=== PATIENT | female | born 1990 | race American Indian/Alaskan Native ===

== ENCOUNTER 2019-01-16 16:27 | Emergency (ER) | payer SELFPAY ==
[2019-01-16] MEDS ORDERED: AMOXICILLIN/K CLAV 875/125MG TAB PO ONE (19:20)
[2019-01-16] MEDS ORDERED: IBUPROFEN 800 MG TAB PO ONE (19:20)
--- NOTE | 2019-01-16 19:51 | Emergency Department Report ---
ED General Adult HPI - General Chief complaint: Nausea/Vomiting/Diarrhea Stated complaint: VOMIT/MISS PERIOD Time Seen by Provider: 01/16/19 19:07 Source: patient Mode of arrival: Ambulatory Limitations: No Limitations - History of Present Illness Initial comments: pt is a 28 y/o aaf who presents for complaint of n/v qam, cough head congestion, sore throat. concerned for . hx or recurring URI, 2 children at home who are sick with strep throat and uri. symptoms are exacerbated by nothing, relieved by nothing. pt is tolerating po intake at this time. There is no fever. pt is tolerating po intake at this time. Onset/Timin -: week(s) Location: head Severity scale (0 -10): 3 Consistency: intermittent Improves with: none Worsens with: none Associated Symptoms: cough, nausea/vomiting, other (head congestion ) Treatments Prior to Arrival: none - Related Data Previous Rx's Medication Instructions Recorded Last Taken Type Acetaminophen [Acetaminophen TAB] 1,000 mg PO Q6HR PRN #30 tablet 01/16/19 Unknown Rx Amoxicillin/Potassium Clav 1 each PO BID 10 Days #20 tablet 01/16/19 Unknown Rx [Augmentin 875-125 Tablet] Allergies Allergy/AdvReac Type Severity Reaction Status Date / Time No Known Allergies Allergy Verified 01/16/19 16:31 ED Review of Systems ROS: Stated complaint: VOMIT/MISS PERIOD Other details as noted in HPI Constitutional: denies: chills, fever Eyes: denies: eye pain, eye discharge, vision change ENT: ear pain, throat pain Respiratory: cough. denies: shortness of breath, wheezing Cardiovascular: denies: chest pain, palpitations Endocrine: no symptoms reported Gastrointestinal: denies: abdominal pain, nausea, diarrhea Genitourinary: denies: urgency, dysuria, discharge Musculoskeletal: denies: back pain, joint swelling, arthralgia Skin: denies: rash, lesions Neurological: denies: headache, weakness, paresthesias Psychiatric: denies: anxiety, depression Hematological/Lymphatic: denies: easy bleeding, easy bruising ED Past Medical Hx - Past Medical History Previous Medical History?: No - Surgical History Past Surgical History?: No - Social History Smoking Status: Never Smoker Substance Use Type: None - Medications Home Medications: Home Medications Medication Instructions Recorded Confirmed Last Taken Type Acetaminophen [Acetaminophen TAB] 1,000 mg PO Q6HR PRN #30 tablet 01/16/19 Unknown Rx Amoxicillin/Potassium Clav 1 each PO BID 10 Days #20 tablet 01/16/19 Unknown Rx [Augmentin 875-125 Tablet] ED Physical Exam - General Limitations: No Limitations General appearance: alert, in no apparent distress - Head Head exam: Present: atraumatic, normocephalic, normal inspection - Eye Eye exam: Present: normal appearance, PERRL, EOMI Pupils: Present: normal accommodation - ENT ENT exam: Present: mucous membranes moist, TM's normal bilaterally, normal external ear exam - Expanded ENT Exam Expanded Ear exam: Present: normal external inspection Throat exam: Positive: tonsillar erythema, tonsillomegaly, tonsillar exudate, other (uvula midline no stridor no lesions ). Negative: R peritonsillar mass, L peritonsillar mass - Neck Neck exam: Present: normal inspection, full ROM, lymphadenopathy. Absent: tenderness, meningismus, thyromegaly - Respiratory Respiratory exam: Absent: wheezes, stridor, chest wall tenderness - Cardiovascular Cardiovascular Exam: Present: regular rate, normal rhythm, normal heart sounds. Absent: systolic murmur, diastolic murmur, rubs, gallop - GI/Abdominal GI/Abdominal exam: Present: soft, normal bowel sounds. Absent: distended, tenderness, guarding, rebound, rigid, bruit, hernia - Rectal Rectal exam: Present: deferred - Extremities Exam Extremities exam: Present: normal inspection, full ROM, normal capillary refill, calf tenderness. Absent: tenderness - Back Exam Back exam: Present: normal inspection, full ROM. Absent: tenderness, rash noted - Neurological Exam Neurological exam: Present: alert, oriented X3, CN II-XII intact, normal gait, reflexes normal - Psychiatric Psychiatric exam: Present: normal affect, normal mood - Skin Skin exam: Present: warm, dry, intact, normal color. Absent: rash ED Course Vital Signs 01/16/19 17:13 Temperature 98.4 F Pulse Rate 98 H Respiratory 16 Rate Blood Pressure 147/77 O2 Sat by Pulse 96 Oximetry ED Medical Decision Making - Medical Decision Making pt advises that she can no longer wait for hcg results plan: augmentin, ibuprofen, follow up with pcp. in 2-3 days. Critical care attestation.: If time is entered above; I have spent that time in minutes in the direct care of this critically ill patient, excluding procedure time. ED Disposition Clinical Impression: Pharyngitis Qualifiers: Pharyngitis/tonsillitis etiology: unspecified etiology Qualified Code(s): J02.9 - Acute pharyngitis, unspecified Disposition: TO HOME OR SELFCARE Is pt being admited?: No Does the pt Need Aspirin: No Condition: Stable Instructions: Pharyngitis (ED) Prescriptions: Acetaminophen [Acetaminophen TAB] 1,000 mg PO Q6HR PRN #30 tablet PRN Reason: pain Amoxicillin/Potassium Clav [Augmentin 875-125 Tablet] 1 each PO BID 10 Days #20 tablet Referrals: [facility] [Outside] - 3-5 Days Forms: Work/School Release Form(ED) Time of Disposition: 19:58
[2019-01-16 20:50] LABS: HCG Qualitative,Urine Positive (Negative)
[2019-01-16 21:07] VITALS: BP 126/63
== END 2019-01-16 20:24 | disposition home or self-care (01) ==
LOC: ED 16:27
DX: J02.9 Acute pharyngitis, unspecified (principal)
CPT/HCPCS: 81025

== ENCOUNTER 2019-02-26 16:39 | Emergency (ER) | payer MEDICAID ==
[2019-02-26] MEDS ORDERED: ASPIRIN 325 MG TAB ONE (17:33)
[2019-02-26] MEDS ORDERED: SODIUM CHLORIDE 0.9% 1000 ML 1,000 ML IV ONE ×2 (17:43→18:16)
--- NOTE | 2019-02-26 17:52 | Emergency Department Report ---
ED Female HPI - General Chief complaint: Vaginal Bleeding Stated complaint: VAGINAL BLEED (POSS MISCARRIAGE) Time Seen by Provider: 02/26/19 17:30 Source: patient, EMS Mode of arrival: Stretcher Limitations: No Limitations - History of Present Illness Initial comments: Patient is a 28-year-old female that presents emergency room with worsening abdominal cramps and vaginal bleeding. Patient states her symptoms been going on for 4 days but today the symptoms worsen. Patient states she is approximately 3 months and and has not had any care. Patient states she doesn't know her Rh status. Patient states her pain is a 10 out of 10. Patient states her pain is worse with movement better with rest. MD Complaint: vaginal bleeding, pelvic pain -: Sudden Location: suprapubic Radiation: non-radiating Severity: severe Severity scale (0 -10): 10 Quality: cramping, sharp Consistency: constant Improves with: other Are you Now?: Yes Associated Symptoms: vaginal bleeding, abdominal pain. denies: nausea/vomiting, fever/chills, headaches, loss of appetite, dysuria, hematuria, rash, seizure, shortness of breath, syncope, weakness - Related Data Sexually active: Yes : 3 Para: 2 A: 0 Previous Rx's Medication Instructions Recorded Last Taken Type Acetaminophen [Acetaminophen TAB] 1,000 mg PO Q6HR PRN #30 tablet 01/16/19 Unknown Rx Amoxicillin/Potassium Clav 1 each PO BID 10 Days #20 tablet 01/16/19 Unknown Rx [Augmentin 875-125 Tablet] HYDROcodone/APAP 7.5-325 [[place] 1 each PO Q6HR PRN #12 tablet 02/26/19 Unknown Rx 7.5/325] Iron Fum,Ps/Folic/Bcomp,C No.9 1 each PO BID #60 capsule 02/26/19 Unknown Rx [Integra Plus Capsule] Allergies Allergy/AdvReac Type Severity Reaction Status Date / Time No Known Allergies Allergy Verified 01/16/19 16:31 ED Review of Systems ROS: Stated complaint: VAGINAL BLEED (POSS MISCARRIAGE) Other details as noted in HPI Constitutional: denies: chills, fever Eyes: denies: eye pain, eye discharge, vision change ENT: denies: ear pain, throat pain Respiratory: denies: cough, shortness of breath, wheezing Cardiovascular: denies: chest pain, palpitations Endocrine: no symptoms reported Gastrointestinal: abdominal pain. denies: nausea, diarrhea Genitourinary: as per HPI, other. denies: urgency, dysuria, discharge Musculoskeletal: denies: back pain, joint swelling, arthralgia Skin: denies: rash, lesions Neurological: denies: headache, weakness, paresthesias Psychiatric: denies: anxiety, depression Hematological/Lymphatic: denies: easy bleeding, easy bruising ED Past Medical Hx - Past Medical History Previous Medical History?: Yes Additional medical history: anemia - Surgical History Past Surgical History?: No - Family History Family history: no significant - Social History Smoking Status: Never Smoker Substance Use Type: None - Medications Home Medications: Home Medications Medication Instructions Recorded Confirmed Last Taken Type Acetaminophen [Acetaminophen TAB] 1,000 mg PO Q6HR PRN #30 tablet 01/16/19 Unknown Rx Amoxicillin/Potassium Clav 1 each PO BID 10 Days #20 tablet 01/16/19 Unknown Rx [Augmentin 875-125 Tablet] HYDROcodone/APAP 7.5-325 [[place] 1 each PO Q6HR PRN #12 tablet 02/26/19 Unknown Rx 7.5/325] Iron Fum,Ps/Folic/Bcomp,C No.9 1 each PO BID #60 capsule 02/26/19 Unknown Rx [Integra Plus Capsule] ED Physical Exam - General Limitations: No Limitations General appearance: alert, in no apparent distress - Head Head exam: Present: atraumatic, normocephalic - Eye Eye exam: Present: normal appearance - ENT ENT exam: Present: mucous membranes moist - Neck Neck exam: Present: normal inspection - Respiratory Respiratory exam: Present: normal lung sounds bilaterally. Absent: respiratory distress - Cardiovascular Cardiovascular Exam: Present: regular rate, normal rhythm. Absent: systolic murmur, diastolic murmur, rubs, gallop - GI/Abdominal GI/Abdominal exam: Present: soft, tenderness (suprapubic ttp), normal bowel sounds - Extremities Exam Extremities exam: Present: normal inspection - Back Exam Back exam: Present: normal inspection - Neurological Exam Neurological exam: Present: alert, oriented X3 - Psychiatric Psychiatric exam: Present: normal affect, normal mood - Skin Skin exam: Present: warm, dry, intact, normal color. Absent: rash ED Course Vital Signs 02/26/19 02/26/19 02/26/19 17:26 17:30 17:39 Respiratory 78 H Rate Blood Pressure 74/34 71/30 O2 Sat by Pulse 100 100 Oximetry 02/26/19 02/26/19 02/26/19 17:46 18:00 18:15 Respiratory Rate Blood Pressure 81/32 117/60 115/56 O2 Sat by Pulse 100 100 Oximetry 02/26/19 02/26/19 02/26/19 18:30 18:45 19:01 Respiratory Rate Blood Pressure 136/79 144/75 145/59 O2 Sat by Pulse 100 100 95 Oximetry 02/26/19 02/26/19 02/26/19 19:15 19:30 19:45 Respiratory Rate Blood Pressure 139/72 159/80 133/77 O2 Sat by Pulse 59 L 100 100 Oximetry 02/26/19 02/26/19 02/26/19 20:00 20:15 20:30 Respiratory Rate Blood Pressure 147/78 135/68 132/75 O2 Sat by Pulse 99 100 100 Oximetry 02/26/19 02/26/19 02/26/19 20:45 21:01 21:15 Respiratory Rate Blood Pressure 139/73 123/74 116/61 O2 Sat by Pulse 100 100 100 Oximetry - Reevaluation(s) Reevaluation #1: Patient became hypotensive area patient will be given a bolus of fluids. 02/26/19 17:42 Reevaluation #2: Patient's blood pressure has improved. Patient will have her ultrasound done at bedside. 02/26/19 17:57 Reevaluation #3: Pressure is currently 117/60. Patient will be given pain medications and another bolus of fluids. 02/26/19 18:15 Reevaluation #4: Patient's blood pressure stable. Patient ambulatory in the ER without symptoms or difficulty. Patient does not have any dizziness or complaints with ambulating. Patient stable for discharge. Patient will be discharged home. Patient given follow-up instructions. Patient given discharge instructions. Patient voiced understanding of all instructions. I discussed all results with patient. I discussed plan of care with patient. Patient agrees with plan of care. 02/26/19 21:01 - Consultations Consultation #1: i discussed case with Dr. Estrada, [facility] [employer]. Dr. Estrada recommends discharging patient home to follow up with her office tomorrow at 3:15 in the afternoon. 02/26/19 20:15 ED Medical Decision Making - Lab Data Result diagrams: 02/26/19 17:39 02/26/19 17:39 - Radiology Data Radiology results: report reviewed PELVIC ULTRASOUND INDICATION: Early , vaginal bleeding, passage of clots TECHNIQUE: Transabdominal and endovaginal FINDINGS: Uterus measures 15.3 x 6.7 x 4.6 cm. Endometrial stripe is prominent at 18 mm. On the endovaginal study fluid is seen within the endometrial canal mild internal echoes which may relate to the reported vaginal bleeding but I do not see a defined definite gestational sac. Within the fluid no defined pole or yolk sac are seen and no cardiac activity was noted. Right ovary measures 2.9 cm in length and shows no abnormalities. Left ovary measures 3.1 cm in length and shows no abnormalities. Only a trace of free fluid is seen in the cul-de-sac. IMPRESSION: No definite intrauterine is identified. There is fluid in the endometrial canal but this is not clearly a gestational sac and I cannot confirm an intrauterine . Probably this is a spontaneous in progress though technically I cannot exclude the possibility of ectopic . Do not see strong evidence of that process however. Clinical correlation is suggested. - Medical Decision Making Patient is a 28-year-old female that presents [facility] with abdominal cramping and vaginal bleeding. Patient states she took a home a few months ago was positive. Patient did not have any follow-up for [employer] care for this . Patient had an ultrasound done in the ER and shows an empty uterus. Patient initially hypotensive given fluids and blood pressure improved. Patient monitored for several hours and patient ambulating in the ER multiple times without difficulty. I counseled to COMPLIANCE REVIEW OFFICER for this patient and they recommended discharge and follow-up in her office tomorrow. Appointment set at 3:[address] Estrada. Patient's labs unremarkable except for anemia. Patient given an iron supplement to be taken orally. Patient given pain medications. Patient stable for discharge. Patient discharged home. - Differential Diagnosis vaginal bleeding, miscarriage, cramping Critical Care Time: Yes Critical care time in (mins) excluding proc time.: 35 Critical care attestation.: If time is entered above; I have spent that time in minutes in the direct care of this critically ill patient, excluding procedure time. Critical Care Time: 35 minutes ED Disposition Clinical Impression: Abdominal cramping, Vagina bleeding Abdominal pain Qualifiers: Abdominal location: lower abdomen, unspecified Qualified Code(s): R10.30 - Lower abdominal pain, unspecified Hypotension Qualifiers: Hypotension type: unspecified hypotension type Qualified Code(s): I95.9 - Hypotension, unspecified Disposition: DC- TO HOME OR SELFCARE Is pt being admited?: No Does the pt Need Aspirin: No Condition: Stable Instructions: Spontaneous Miscarriage (ED), Iron Rich Diet (ED), Iron Deficiency Anemia (ED), Anemia (ED) Additional Instructions: Patient to follow-up with [facility] [employer] tomorrow at 3:[address] Estrada's [place] office. Patient to follow up with primary care in 2-3 days. Patient take a pr enatal vitamin daily. Patient to take locations as directed. Patient to increase water. Patient to rest. Nothing per vagina until cleared by [employer] [employer]. Prescriptions: Iron Fum,Ps/Folic/Bcomp,C No.9 [Integra Plus Capsule] 1 each PO BID #60 capsule HYDROcodone/APAP 7.5-325 [[place] 7.5/325] 1 each PO Q6HR PRN #12 tablet PRN Reason: Pain Referrals: PRIMARY CARE, [Primary Care Provider] - 2-3 Days ABDIEL ESTRADA MD [Staff Physician] - 2-3 Days Time of Disposition: 21:44
[2019-02-26 17:58] LABS: Hematocrit 27.3 % (30.3-42.9); Hemoglobin 9.2 gm/dl (10.1-14.3); Mean Corpuscular HGB Conc 34 % (30-34); Mean Corpuscular Volume 81 fl (79-97); Platelet Count 218 K/mm3 (140-440); Red Blood Count 3.38 M/mm3 (3.65-5.03); Red Cell Distribution Width 16.3 % (13.2-15.2)
[2019-02-26 18:04] LABS: BUN/Creatinine Ratio 10; Blood Urea Nitrogen 7 mg/dL (7-17); Calcium 7.9 mg/dL (8.4-10.2); Hemolysis Index 18
[2019-02-26] MEDS ORDERED: HYDROmorphone 1 MG/1 ML INJ ONE (18:12)
[2019-02-26] MEDS ORDERED: HYDROmorphone 1 MG/1 ML INJ IV ONE (18:16)
--- NOTE | 2019-02-26 19:43 | Ultrasound Report ---
PELVIC ULTRASOUND INDICATION: Early , vaginal bleeding, passage of clots TECHNIQUE: Transabdominal and endovaginal FINDINGS: Uterus measures 15.3 x 6.7 x 4.6 cm. Endometrial stripe is prominent at 18 mm. On the endov aginal study fluid is seen within the endometrial canal mild internal echoes which may relate to the reported vaginal bleeding but I do not see a defined definite gestational sac. Within the fluid no de fined pole or yolk sac are seen and no cardiac activity was noted. Right ovary measures 2.9 cm in length and shows no abnormalities. Left ovary measures 3.1 cm in lengt h and shows no abnormalities. Only a trace of free fluid is seen in the cul-de-sac. IMPRESSION: No definite intrauterine is identified. There is fluid in the endometrial canal but this is not clearly a gestational sac and I cannot confirm an intrauterine . Probably t his is a spontaneous in progress though technically I cannot exclude the possibility of ecto pic . Do not see strong evidence of that process however. Clinical correlation is suggested. Signer Name: Jame Garcia MD Signed: 02/26/2019 7:39 PM Workstation Name: [id number]
[2019-02-26 19:54] LABS: Bilirubin,Urine NEG (Negative); Blood,Urine LG (Negative); Color,Urine Red (Yellow); Urobilinogen,Urine < 2.0 mg/dL (<2.0)
[2019-02-26 19:55] LABS: RBC,Urine > 182.0 /HPF (0.0-6.0)
[2019-02-26 21:29] VITALS: BP 116/61
== END 2019-02-26 22:00 | disposition home or self-care (01) ==
LOC: ED 16:39
DX: N93.9 Abnormal uterine and vaginal bleeding, unspecified (principal); R10.9 Unspecified abdominal pain; D64.9 Anemia, unspecified; Z79.2 Long term (current) use of antibiotics; Z79.899 Other long term (current) drug therapy; I95.9 Hypotension, unspecified
CPT/HCPCS: 36415; 76801; 76817; 80048; 81001; 84702; 85027; 86900; 86901; 87086; 96374; 99284; J1170; J7030

== ENCOUNTER 2019-06-24 12:13 | Emergency (ER) | payer MEDICAID ==
[2019-06-24 12:32] VITALS: BP 132/86
--- NOTE | 2019-06-24 13:22 | XRay Report ---
CHEST 2 VIEWS INDICATION / CLINICAL INFORMATION: Chest Pain. COMPARISON: None available. FINDINGS: SUPPORT DEVICES: None. HEART / MEDIASTINUM: The heart size and pulmonary vasculature are normal. The aorta is normal in [place]. LUNGS / PLEURA: No significant pulmonary or pleural abnormality. No pneumothorax. ADDITIONAL FINDINGS: No significant additional findings. IMPRESSION: No acute findings. Signer Name: Sacha Dougherty MD Signed: 06/24/2019 1:18 PM Workstation Name: [id number]
[2019-06-24] MEDS ORDERED: FAMOTIDINE 20 MG TAB PO ONE (13:45)
--- NOTE | 2019-06-24 13:50 | Emergency Department Report ---
ED General Adult HPI - General Chief complaint: Chest Pain Stated complaint: CHEST TIGHTNESS/BACK PAIN Time Seen by Provider: 06/24/19 13:15 Source: patient Mode of arrival: Ambulatory Limitations: No Limitations - History of Present Illness Initial comments: This is a 28-year-old healthy individual female with no prior medical history presents the ED complaining of mid sternal chest pain that began yesterday. Patient states that it felt like her chest was caving in, patient states that this morning when she woke up she also had a similar symptom. Patient describes pain as localized to her mid chest region in between the breast that is sometimes felt in the back as well. Patient states that pain does not radiate anywhere else. Patient states that this has been ongoing intermittently for a while now since about 6 years. Patient states that she has been evaluated by her primary care doctor and was told that nothing was wrong. Patient denies any known history of anxiety or any other medical history. She denies fever/chills/nausea vomiting/shortness of breath/ - Related Data Previous Rx's Medication Instructions Recorded Last Taken Type Acetaminophen [Acetaminophen TAB] 1,000 mg PO Q6HR PRN #30 tablet 01/16/19 Unknown Rx Amoxicillin/Potassium Clav 1 each PO BID 10 Days #20 tablet 01/16/19 Unknown Rx [Augmentin 875-125 Tablet] HYDROcodone/APAP 7.5-325 [[place] 1 each PO Q6HR PRN #12 tablet 02/26/19 Unknown Rx 7.5/325] Iron Fum,Ps/Folic/Bcomp,C No.9 1 each PO BID #60 capsule 02/26/19 Unknown Rx [Integra Plus Capsule] Famotidine [Pepcid] 20 mg PO BID #20 tablet 06/24/19 Unknown Rx Allergies Allergy/AdvReac Type Severity Reaction Status Date / Time No Known Allergies Allergy Verified 01/16/19 16:31 ED Review of Systems ROS: Stated complaint: CHEST TIGHTNESS/BACK PAIN Other details as noted in HPI Comment: All other systems reviewed and negative ED Past Medical Hx - Past Medical History Previous Medical History?: Yes Additional medical history: anemia - Surgical History Past Surgical History?: Yes Additional Surgical History: x2 - Social History Smoking Status: Never Smoker Substance Use Type: None - Medications Home Medications: Home Medications Medication Instructions Recorded Confirmed Last Taken Type Acetaminophen [Acetaminophen TAB] 1,000 mg PO Q6HR PRN #30 tablet 01/16/19 Unknown Rx Amoxicillin/Potassium Clav 1 each PO BID 10 Days #20 tablet 01/16/19 Unknown Rx [Augmentin 875-125 Tablet] HYDROcodone/APAP 7.5-325 [[place] 1 each PO Q6HR PRN #12 tablet 02/26/19 Unknown Rx 7.5/325] Iron Fum,Ps/Folic/Bcomp,C No.9 1 each PO BID #60 capsule 02/26/19 Unknown Rx [Integra Plus Capsule] Famotidine [Pepcid] 20 mg PO BID #20 tablet 06/24/19 Unknown Rx ED Physical Exam - General Limitations: No Limitations General appearance: alert, in no apparent distress - Head Head exam: Present: atraumatic, normocephalic - Eye Eye exam: Present: normal appearance, PERRL Pupils: Present: normal accommodation - ENT ENT exam: Present: mucous membranes moist - Neck Neck exam: Present: normal inspection - Respiratory Respiratory exam: Present: normal lung sounds bilaterally. Absent: respiratory distress - Cardiovascular Cardiovascular Exam: Present: regular rate, normal rhythm. Absent: systolic murmur, diastolic murmur, rubs, gallop - GI/Abdominal GI/Abdominal exam: Present: soft, normal bowel sounds - Extremities Exam Extremities exam: Present: normal inspection - Back Exam Back exam: Present: normal inspection - Neurological Exam Neurological exam: Present: alert, oriented X3 - Psychiatric Psychiatric exam: Present: normal affect, normal mood - Skin Skin exam: Present: warm, dry, intact, normal color. Absent: rash ED Course Vital Signs 06/24/19 12:30 Temperature 98.9 F Pulse Rate 64 Respiratory 20 Rate Blood Pressure 132/86 O2 Sat by Pulse 99 Oximetry ED Medical Decision Making - EKG Data EKG shows normal: sinus rhythm Rate: normal - EKG Data Interpretation: no acute changes, normal EKG - Radiology Data Radiology results: report reviewed, image reviewed INDICATION / CLINICAL INFORMATION: Chest Pain. COMPARISON: None available. FINDINGS: SUPPORT DEVICES: None. HEART / MEDIASTINUM: The heart size and pulmonary vasculature are normal. The aorta is normal in caliber. LUNGS / PLEURA: No significant pulmonary or pleural abnormality. No pneumothorax. ADDITIONAL FINDINGS: No significant additional findings. IMPRESSION: No acute findings. Signer Name: Sacha Dougherty MD Signed: 06/24/2019 1:18 PM Workstation Name: [id number] Transcribed By: RT Dictated By: Sacha Dougherty MD Electronically Authenticated By: Sacha Dougherty MD Signed Date/Time: 06/24/19 1318 - Medical Decision Making 28-year-old female presents with atypical chest pain. Discussed with patient chest pain could be associated with costochondritis, acid reflux or anxiety attack. Discussed with patient that the x-rays were normal, there is no signs of pneumonia or any acute chest syndrome or respiratory syndrome. Discussed with patient to follow-up with her building wrecker as well as her cosmetic sales advisor. Vital signs are normal patient is in no acute or respiratory distress during ED stay. Patient states understanding instructions and will follow-up. Critical care attestation.: If time is entered above; I have spent that time in minutes in the direct care of this critically ill patient, excluding procedure time. ED Disposition Clinical Impression: Chest pain of unknown etiology, Atypical chest pain Disposition: DC-01 TO HOME OR SELFCARE Is pt being admited?: No Does the pt Need Aspirin: No Condition: Stable Instructions: Chest Pain (ED), Costochondritis (ED), Diet for Ulcers and Gastritis (ED), Gastroesophageal Reflux Disease (ED) Additional Instructions: Make sure to follow up with the primary care physician as discussed. Take all your medications as you've been prescribed. If you have any worsening symptoms or develop new symptoms please return to ED immediately. Prescriptions: Famotidine [Pepcid] 20 mg PO BID #20 tablet Referrals: ABBEY DWYER MD [Staff Physician] - 3-5 Days [facility] [Provider Group] - 3-5 Days Forms: Work/School Release Form(ED) Time of Disposition: 13:55
== END 2019-06-24 15:27 | disposition home or self-care (01) ==
LOC: ED 12:13
DX: R07.89 Other chest pain (principal); R10.9 Unspecified abdominal pain
CPT/HCPCS: 71046; 93005; 93010